=== PATIENT | female | born 1995 | race African-American/Black ===

== ENCOUNTER 2020-12-05 08:31 | Emergency (ER) | payer MEDICAID ==
--- NOTE | 2020-12-05 08:55 | ED Physician Documentation ---
PD HPI ABD PAIN - Stated complaint Stated Complaint: FEMALE - Chief complaint Chief Complaint: Abd Pain - History obtained from History obtained from: Patient - History of Present Illness Timing - onset: Yesterday Timing - duration: Days (1) Timing - details: Gradual onset, Still present Quality: Cramping, Aching, Pain Location: RLQ, Suprapubic Radiation: No: Lower back, Right flank Improved by: Position. No: Eating Worsened by: Moving, Palpation. No: Eating Associated symptoms: Vaginal dc. No: Fever, Nausea, Vomiting, Diarrhea, Constipation, Dysuria, Vaginal bleeding Similar symptoms before: No diagnosis (has had intermittent pelvic cramping over the past year since IUD placed. Prior U/S appeared okay per patient.) Recently seen: Not recently seen Review of Systems Constitutional: denies: Fever, Chills Nose: denies: Rhinorrhea / runny nose, Congestion Throat: denies: Sore throat Respiratory: denies: Cough GI: reports: Abdominal Pain. denies: Nausea, Vomiting, Diarrhea : reports: Discharge. denies: Dysuria, Frequency, Vaginal bleeding Skin: denies: Rash, Lesions PD PAST MEDICAL HISTORY - Past Medical History Past Medical History: No Cardiovascular: None Respiratory: None Neuro: Alzhiemer's Endocrine/Autoimmune: None GI: None MANAGER WOUND: None : None HEENT: None Psych: None Musculoskeletal: None Derm: None - Past Surgical History Past Surgical History: No - Present Medications Home Medications: Ambulatory Orders Medication Instructions Recorded Confirmed Fluconazole [Diflucan] 150 mg PO Q3D #2 tablet 12/05/20 HYDROcod/ACETAM 5/325 [[place] 5/325] 1 ea PO Q6H PRN #8 tablet 12/05/20 Ibuprofen [Motrin] 600 mg PO TID PRN #15 tab 12/05/20 metroNIDAZOLE [Flagyl] 500 mg PO BID #14 tablet 12/05/20 - Allergies Allergies/Adverse Reactions: Allergies Allergy/AdvReac Type Severity Reaction Status Date / Time No Known Drug Allergies Allergy Verified 12/05/20 08:46 - Social History Does the pt smoke?: No Smoking Status: Never smoker Does the pt drink ETOH?: No Does the pt have substance abuse?: No - Immunizations Immunizations are current?: Yes - POLST Patient has POLST: No PD ED PE NORMAL - Vitals Vital signs reviewed: Yes - General General: Alert and oriented X 3, Well developed/nourished, Other (appears uncomfortable, knees drawn up. Patient drove self here and prefers to be driving home.) - Neck Neck: Supple, no meningeal sign, No adenopathy - Cardiac Cardiac: RRR, No murmur - Respiratory Respiratory: Clear bilaterally - Abdomen Abdomen: Normal bowel sounds, Soft, Non distended, Other - Female Female : Assistant Credit Manager present, Other (external normal. Vaginal vault with thicker white discharge and also some mucoid thinner white as well. Mild endocervical discharge. IUD strings are visible, and IUD easily removed without bleeding after U/S to ensure not tubal/perforated/etc.) - Rectal Rectal: Deferred - Derm Derm: Normal color, Warm and dry Results - Vitals Vitals: Vital Signs - 24 hr 12/05/20 12/05/20 08:38 12:18 Temperature 36.7 C Heart Rate 84 72 Respiratory 16 16 Rate Blood Pressure 128/72 128/67 O2 Saturation 99 100 Oxygen O2 Source Room air - Labs Labs: Laboratory Tests 12/05/20 12/05/20 09:20 12:12 Urine Color YELLOW Urine Clarity CLEAR Urine pH 6.5 Ur Specific [place] 1.020 Urine Protein NEGATIVE Urine Glucose (UA) NEGATIVE Urine Ketones NEGATIVE Urine Occult Blood NEGATIVE Urine Nitrite NEGATIVE Urine Bilirubin NEGATIVE Urine Urobilinogen 0.2 (NORMAL) Ur Leukocyte Esterase NEGATIVE Ur Microscopic Review NOT INDICATED Urine Culture Comments NOT INDICATED Urine HCG, Qual NEGATIVE C. glabrata (PCR) NEGATIVE C. krusei (PCR) NEGATIVE Ivette species DNA NEGATIVE T. vaginalis (PCR) NEGATIVE Bact Vaginosis (PCR) POSITIVE A PD MEDICAL DECISION MAKING - ED course Complexity details: reviewed results (IUD is in low uterine segment/upper cervix, per Tech. one arm in the uterine wall. No perforation. No other acute process. Ovaries normal. ), re-evaluated patient (IUD was low and likely causing her pelvic cramping and she would like it out. This is reasonable since apparent vaginitis.), considered differential (she is having some vag discharge, also with pelvic cramping she has had intermittently and feels it is from IUD. ), d/w patient ED course: Some delayed time in ER as UI/S doing outpatient studies and took a bit to get to patient. Departure - Departure Disposition: 01 Home, Self Care Clinical Impression: Pelvic pain IUD migration Qualifiers: Encounter type: initial encounter Qualified Code(s): T83.32XA - Displacement of intrauterine contraceptive device, initial encounter Vaginitis Qualifiers: Chronicity: acute Qualified Code(s): N76.0 - Acute vaginitis Condition: Stable Record reviewed to determine appropriate education?: Yes Instructions: ED Vaginal Infec Fungal Ivette Follow-Up: [facility] [Provider Group] Prescriptions: Fluconazole [Diflucan] 150 mg PO Q3D #2 tablet metroNIDAZOLE [Flagyl] 500 mg PO BID #14 tablet Ibuprofen [Motrin] 600 mg PO TID PRN #15 tab PRN Reason: Pain HYDROcod/ACETAM 5/325 [[place] 5/325] 1 ea PO Q6H PRN #8 tablet PRN Reason: Pain Comments: Your IUD was in the lower uterine segment/upper cervix and location lemos could have been causing the cramping and pain. There was signs of some vaginitis on exam as well and that may have migrated up into the lower uterus as well. The IUD is removed without problems. You may notice some mild spotting or bleeding for a day or 2. Stay well-hydrated. Anti-inflammatory of ibuprofen 3 times a day with food. To that add Tylenol or hydrocodone if needed for worse pain over the next couple of days. I would anticipate improvement over the next couple of days. The vaginal specimen tests will result in a day or 2 will call if we need to modify treatment. At this point it looks like fungal yeast infection for sure and likely some bacterial vaginitis as well. Diflucan and metronidazole as directed. Recheck if not improved well over the next several days. Discharge Date/Time: 12/05/20 12:20
[2020-12-05] MEDS ORDERED: ACETAMINOPHEN 325 MG TABLET PO STA (09:06)
[2020-12-05] MEDS ORDERED: KETOROLAC 30 MG/ML VIAL IM STA (09:06)
[2020-12-05 09:29] LABS: BILIRUBIN,URINE NEGATIVE (NEGATIVE); GLUCOSE, URINE (UA) NEGATIVE (NEGATIVE); KETONES,URINE (UA) NEGATIVE (NEGATIVE); LEUKOCYTE ESTERASE, URINE NEGATIVE (NEGATIVE); NITRITE,URINE NEGATIVE (NEGATIVE); OCCULT BLOOD,URINE NEGATIVE (NEGATIVE); PH,URINE 6.5 PH (5.0-7.5); PROTEIN,URINE NEGATIVE (NEGATIVE); UROBILINOGEN,URINE 0.2 (NORMAL) E.U./dL (NORMAL)
[2020-12-05 09:30] LABS: CLARITY,URINE CLEAR (CLEAR); HCG UR QUAL NEGATIVE
--- NOTE | 2020-12-05 11:44 | Ultrasound Report ---
PROCEDURE: Pelvic w/Transvag+Doppler Comp INDICATIONS: pelvic pain, R and center; IUD in place TECHNIQUE: Real-time scanning was performed of the pelvic organs, with image documentation. Additional endovagi nal scanning was necessary due to incomplete visualization of the adnexal and endometrial structures by transabdominal scanning. COMPARISON: None. FINDINGS: No pathologic free abdominal or pelvic fluid. Uterus: Uterus is normal in size at 9.1 x 4.2 x 5.2 cm. The endometrium measures 3 mm in combined t hickness. The IUD is low lying, largely seen within the lower uterine segment. One crossbar of the I UD can be seen embedded within the anterior uterus. The second cross bar is not seen on these images. Ovaries: The right ovary measures 4.3 x 2.2 x 3.5 cm and the left ovary measures 3.2 x 1.7 x 2.2 cm. No significant ovarian abnormalities are seen, with note made of cystic follicles, which are conside red to be within physiologic limits. There are less than 12 follicles seen on each side. No adnexa l masses are seen. Normal-appearing arterial waveforms are confirmed to each ovary. IMPRESSION: Abnormal IUD, which is low lying, largely seen along the lower uterine segment. One crossbar of the L AD can be seen embedded within the anterior uterus. The second cross bar is not seen on these images. Note: Concordant preliminary findings given by the fisher oyster upon the completion of the examination to Dr. Licea at 11:20 AM on 12/05/2020. Reviewed by: Austin Espinoza MD on 12/05/2020 10:43 AM MARLYN Approved by: Austin Espinoza MD on 12/05/2020 10:43 AM MARLYN Station ID: [id number]
[2020-12-05] MEDS ORDERED: metroNIDAZOLE 250 MG TABLET PO STA (12:13)
[2020-12-05] MEDS ORDERED: FLUCONAZOLE 100 MG TABLET PO STA (12:13)
[2020-12-05 12:19] VITALS: BP 128/67
[2020-12-05 15:54] LABS: BACTERIAL VAGINOSIS DNA POSITIVE (NEGATIVE); CANDIDA GLABRATA DNA NEGATIVE (NEGATIVE); CANDIDA GROUP DNA NEGATIVE (NEGATIVE); CANDIDA KRUSEI DNA NEGATIVE (NEGATIVE); TRICHOMONAS VAGINALIS DNA NEGATIVE (NEGATIVE)
[2020-12-05 23:38] LABS: CHLAMYDIA TRACHOMATIS DNA NEGATIVE (NEGATIVE); NEISSERIA GONORRHOEAE DNA NEGATIVE (NEGATIVE); TRICHOMONAS VAGINALIS DNA NEGATIVE (NEGATIVE)
== END 2020-12-05 12:20 | disposition home or self-care (01) ==
LOC: ED 08:31
DX: T83.32XA Displacement of intrauterine contraceptive device, initial encounter (principal); Y76.8 Miscellaneous obstetric and gynecological devices associated with adverse incidents, not elsewhere classified; N76.0 Acute vaginitis; R10.2 Pelvic and perineal pain
CPT/HCPCS: 58301; 76830; 76856; 81003; 81025; 87481; 87491; 87591; 87661; 87801; 93975; 96372; 99284; A9270; 81001; 87086

== ENCOUNTER 2020-12-12 18:08 | Emergency (ER) | payer MEDICAID ==
[2020-12-12] MEDS ORDERED: HYDROmorphone 1 MG/ML CARPUJECT IVP STA (18:37)
--- NOTE | 2020-12-12 18:38 | ED Physician Documentation ---
PD HPI CHEST PAIN - Stated complaint Stated Complaint: CP/THROAT PX - Chief complaint Chief Complaint: Cardiac - History obtained from History obtained from: Patient - Additional information Additional information: A 25-year-old woman in her usual state of health was sitting on a couch about an hour and a half ago and developed substernal chest pain and neck pain radiating to the back. Pain is mostly better now but still has back pain and a headache. No light sensitivity, nausea. No possibility of . No personal or family history of concern except for cancers in the family. Review of Systems Ten Systems: 10 systems reviewed and negative Constitutional: denies: Fever, Chills Eyes: denies: Loss of vision, Decreased vision Ears: denies: Loss of hearing, Ear pain Nose: denies: Rhinorrhea / runny nose, Congestion Throat: denies: Sore throat Cardiac: reports: Chest pain / pressure. denies: Palpitations, Pedal edema, Calf pain Respiratory: denies: Hemoptysis, Wheezing PD PAST MEDICAL HISTORY - Past Medical History Past Medical History: Yes Cardiovascular: None Respiratory: None Neuro: Headaches Endocrine/Autoimmune: None GI: None SPACE STUDIES FACULTY MEMBER: None : None HEENT: None Psych: None Musculoskeletal: None Derm: None - Past Surgical History Past Surgical History: No Ortho: Other - Present Medications Home Medications: Ambulatory Orders Medication Instructions Recorded Confirmed Fluconazole [Diflucan] 150 mg PO Q3D #2 tablet 12/05/20 12/12/20 metroNIDAZOLE [Flagyl] 500 mg PO BID #14 tablet 12/05/20 12/12/20 - Allergies Allergies/Adverse Reactions: Allergies Allergy/AdvReac Type Severity Reaction Status Date / Time No Known Drug Allergies Allergy Verified 12/12/20 18:16 - Social History Does the pt smoke?: No Smoking Status: Never smoker Does the pt drink ETOH?: No Does the pt have substance abuse?: Yes Substance Use and Type: Marijuana - Immunizations Immunizations are current?: Yes - POLST Patient has POLST: No PD ED PE NORMAL - Vitals Vital signs reviewed: Yes - General General: Alert and oriented X 3, No acute distress - HEENT HEENT: PERRL, EOMI - Neck Neck: Supple, no meningeal sign, No bony TTP - Cardiac Cardiac: RRR, No murmur, Strong equal pulses (radial) - Respiratory Respiratory: No respiratory distress, Clear bilaterally - Abdomen Abdomen: Non tender - Back Back: No spinal TTP, Other (She is comfortable at wet rest but winces with motion and position changes. She has reproducible tenderness of the parathoracic musculature of the back.) - Extremities Extremities: No edema, No calf tenderness / cord Results - Vitals Vitals: Vital Signs - 24 hr 12/12/20 12/12/20 12/12/20 18:11 18:24 20:16 Temperature 37.0 C Heart Rate 74 88 73 Respiratory 24 14 15 Rate Blood Pressure 133/83 H 166/71 H 109/68 O2 Saturation 99 99 96 Oxygen O2 Source Room air - EKG (time done) 1815 Rate: Rate (enter#) (72) Rhythm: NSR [place]: Normal Intervals: Normal [place] QRS: Normal Ischemia: Normal ST segments - Labs Labs: Laboratory Tests 12/12/20 12/12/20 12/12/20 18:46 18:46 18:46 WBC 7.4 RBC 4.27 Hgb 12.8 Hct 37.8 MCV 88.5 MCH 30.0 MCHC 33.9 RDW 12.9 Plt Count 240 MPV 10.6 Neut # (Auto) 4.3 Lymph # (Auto) 2.7 [place] # (Auto) 0.3 Eos # (Auto) 0.1 Baso # (Auto) 0.0 Absolute Nucleated RBC 0.00 Nucleated RBC % 0.0 Sodium 140 Potassium 3.6 Chloride 105 Carbon Dioxide 24 Anion Gap 11.0 BUN 10 Creatinine 0.7 Estimated GFR (MDRD) 125 Glucose 128 H Calcium 9.4 Total Bilirubin 1.1 H AST 18 ALT 18 Alkaline Phosphatase 45 Troponin I High Sens < 2.3 L Total Protein 7.4 Albumin 4.6 Globulin 2.8 Albumin/Globulin Ratio 1.6 Lipase 24 - Rads (name of study) 2 view chest x-ray Radiology: EMP read contemporaneously (Normal) CT of the head Radiology: EMP read contemporaneously (Normal) PD MEDICAL DECISION MAKING - ED course ED course: 25-year-old woman presents initially with chest and back pain then morphing into a headache. States she has had similar episodes of chest and back pain in the past without clear diagnosis. Chest pain and back pain were better after IV Dilaudid. No clinical evidence of dissection. Chest x-ray EKG and troponin were without evidence of significant abnormality. Then her headache became more significant, and this was treated with Reglan with eventual relief. Departure - Departure Disposition: 01 Home, Self Care Clinical Impression: Atypical chest pain Headache Qualifiers: Headache type: unspecified Headache chronicity pattern: acute headache Intractability: not intractable Qualified Code(s): R51.9 - Headache, unspecified Condition: Good Record reviewed to determine appropriate education?: Yes Instructions: ED Chest Pain Atypical Unkn Cause, ED Headache Migraine Comments: No evidence of serious issue tonight, CT of your head, labs, chest x-ray all within normal limits. Return for new or worsening symptoms. Follow-up with your primary care physician, next available appointment. Do not drive tonight.
[2020-12-12 18:51] LABS: BASOPHILS % (AUTO) 0.4 %; EOSINOPHILS # (AUTO) 0.1 10^3/uL (0.0-0.7); EOSINOPHILS % (AUTO) 0.9 %; HCT - HEMATOCRIT 37.8 % (37.0-47.0); HGB - HEMOGLOBIN 12.8 g/dL (12.0-16.0); LYMPHOCYTES # (AUTO) 2.7 10^3/uL (1.5-3.5); MEAN CORPUSCULAR HGB CONC 33.9 g/dL (32.0-36.0); MEAN CORPUSCULAR VOLUME 88.5 fL (81.0-99.0); MEAN PLATELET VOLUME 10.6 fL (7.9-10.8); MONOCYTES # (AUTO) 0.3 10^3/uL (0.0-1.0); MONOCYTES % (AUTO) 4.6 %; NEUTROPHILS # (AUTO) 4.3 10^3/uL (1.5-6.6); NEUTROPHILS % (AUTO) 57.8 %; PLT - PLATELET COUNT 240 10^3/uL (130-450); RED BLOOD COUNT 4.27 10^6/uL (4.20-5.40); RED CELL DISTRIBUTION WIDTH 12.9 % (12.0-15.0); WHITE BLOOD COUNT 7.4 x10^3/uL (4.8-10.8)
[2020-12-12 19:13] LABS: ALBUMIN 4.6 g/dL (3.2-5.5); ALBUMIN/GLOBULIN RATIO 1.6 (1.0-2.2); BILIRUBIN,TOTAL 1.1 mg/dL (0.2-1.0); CALCIUM 9.4 mg/dL (8.5-10.3); CREATININE 0.7 mg/dL (0.4-1.0); POTASSIUM 3.6 mmol/L (3.5-5.0); TOTAL PROTEIN 7.4 g/dL (6.7-8.2)
--- NOTE | 2020-12-12 19:17 | XRAY Report ---
PROCEDURE: Chest 2 View X-Ray INDICATIONS: chest pain TECHNIQUE: 2 view(s) of the chest. COMPARISON: None. FINDINGS: Surgical changes and devices: None. Lungs and pleura: No pleural effusions or pneumothorax. Lungs are clear. Mediastinum: Mediastinal contours are normal. Heart size is normal. Bones and chest wall: No suspicious bony abnormalities. Soft tissues appear unremarkable. IMPRESSION: No evidence of acute pulmonary process. Reviewed by: Fili Negrete MD on 12/12/2020 7:15 PM PDT Approved by: Fili Negrete MD on 12/12/2020 7:15 PM PDT Station ID: [id number]
[2020-12-12] MEDS ORDERED: METOCLOPRAMIDE 10 MG/2 ML VIAL IVP STA (19:28)
--- NOTE | 2020-12-12 20:11 | CT Report ---
PROCEDURE: HEAD WO INDICATIONS: headache TECHNIQUE: Noncontrast 4.5 mm thick angled axial sections acquired from the foramen magnum to the vertex. For r adiation dose reduction, the following was used: automated exposure control, adjustment of mA and/or kV according to patient size. COMPARISON: None. FINDINGS: Image quality: Excellent. CSF spaces: Basal cisterns are patent. No extra-axial fluid collections. Ventricles are normal in size and shape. Brain: No midline shift. No intracranial masses or hemorrhage. Inman-white matter interface is norm al. Skull and face: Calvarium and visualized facial bones are intact, without suspicious lesions. Sinuses: Visualized sinuses and mastoids are clear. IMPRESSION: No evidence acute stroke, hemorrhage, or mass. Reviewed by: Fili Negrete MD on 12/12/2020 8:09 PM PDT Approved by: Fili Negrete MD on 12/12/2020 8:09 PM PDT Station ID: [id number]
[2020-12-12 21:04] VITALS: BP 110/74
== END 2020-12-12 21:13 | disposition home or self-care (01) ==
LOC: ED 18:08
DX: R07.9 Chest pain, unspecified (principal); R51.9 Headache, unspecified
CPT/HCPCS: 36415; 70450; 71046; 80053; 83690; 84484; 85025; 93005; 96374; 96375; 99284; J1170; J2765

== ENCOUNTER 2022-03-31 13:50 | Outpatient (CLI) | payer MEDICAID ==
--- NOTE | 2022-03-31 16:57 | Ultrasound Report ---
PROCEDURE: OB First Trimester w/TV INDICATIONS: POSITIVE TEST OUTSIDE/PRIOR DATING DATA: Last menstrual period (LMP): 02/02/2022. LMP-based estimated date of delivery (RUBÉN): 11/09/2022. First dating scan (date and location): 03/31/2022. Estimated date of delivery (RUBÉN) from first dating scan: 11/14/2022. TECHNIQUE: Real-time scanning was performed of the fetus and maternal pelvic organs, with image documentation. Endovaginal scanning was also performed to better visualize the fetus and maternal ovaries. COMPARISON: None FINDINGS: There is a single living intrauterine gestation with a heart rate of 144 bpm. Sheldon-rump length is 13 mm corresponding to a 7 week 4 day gestation. A yolk sac is present. There is a small para ges tational hemorrhage measuring 8 mm. Measurement variability in dating: +/- 4 weeks by LMP, +/- 7 day s by mean sac diameter (use before 6 weeks gestation if crown-rump length not able to be measured), + /- 5 days by crown-rump length (6-12 weeks gestation). Maternal organs: Ovaries within normal limits. IMPRESSION: Single living early intrauterine gestation. Reviewed by: Yosef Laguna MD on 03/31/2022 4:55 PM PDT Approved by: Yosef Laguna MD on 03/31/2022 4:55 PM PDT Station ID: [id number]
== END 2022-03-31 13:51 | disposition home or self-care (01) ==
LOC: DI 13:50
PROVIDERS: ATTEND Nurse Practitioner
DX: Z32.01 Encounter for pregnancy test, result positive (principal)

== ENCOUNTER 2022-04-14 08:00 | Outpatient (CLI) | payer MEDICAID ==
[2022-04-14 23:05] LABS: CHLAMYDIA TRACHOMATIS DNA NEGATIVE (NEGATIVE); NEISSERIA GONORRHOEAE DNA NEGATIVE (NEGATIVE); TRICHOMONAS VAGINALIS DNA NEGATIVE (NEGATIVE)
== END 2022-04-14 23:59 | disposition home or self-care (01) ==
LOC: LAB.WC 08:00
PROVIDERS: ATTEND Obstetrics & Gynecology
DX: Z11.3 Encounter for screening for infections with a predominantly sexual mode of transmission (principal)
CPT/HCPCS: 87491; 87591; 87661

== ENCOUNTER 2022-05-30 11:04 | Outpatient (CLI) | payer MEDICAID ==
[2022-06-02 13:09] LABS: AFP MOM 0.64 (.); AFP VALUE 23.9 ng/mL (.); DIA MOM 0.87 (.); DIA VALUE 121.02 pg/mL (.); DSR (BY AGE) 1 IN 943 (.); DSR (SECOND TRIMESTER) 1 IN 1405 (.); GEST. AGE ON COLLECTION DATE 16.7 WEEKS (.); HCG MOM 1.79 (.); HCG VALUE 59149 mIU/mL (.); INSULIN DEP DIABETES No (.); MATERNAL AGE AT EDD 26.7 yr (.); MULTIPLE GESTATION No (.); OPEN SPINA BIFIDA RISK 1 IN 10000 (.); RACE Black (.); RESULTS Report (.); TEST RESULTS *Screen Negative* (.); TRISOMY 18 RISK Not increased (.); UE3 VALUE 0.85 ng/mL (.); WEIGHT 184 lbs (.)
== END 2022-05-30 11:05 | disposition home or self-care (01) ==
LOC: LAB.N 11:04
PROVIDERS: ATTEND Obstetrics & Gynecology
DX: O99.019 Anemia complicating pregnancy, unspecified trimester (principal); O34.211 Maternal care for low transverse scar from previous cesarean delivery
CPT/HCPCS: 36415; 81511; 82728; 83540

== ENCOUNTER 2022-06-30 20:04 | Outpatient (CLI) | payer MEDICAID ==
--- NOTE | 2022-07-01 09:08 | Ultrasound Report ---
PROCEDURE: OB F/U or Repeat INDICATIONS: SUPERVISION OF OUTSIDE/PRIOR DATING DATA: Last menstrual period (LMP): 02/02/2022. LMP-based estimated date of delivery (RUBÉN): 11/09/2022. First dating scan (date and location): 03/31/2022. Estimated date of delivery (RUBÉN) from first dating scan: 11/14/2022. The below data below was generated using the ultrasound RUBÉN of 11/14/2022. TECHNIQUE: Real-time scanning was performed of the fetus, with image documentation. COMPARISON: OB ultrasound 06/22/2022. FINDINGS: General: A single living intrauterine gestation is present. Presentation: Vertex Placenta: Placental position is posterior, without previa. Amniotic fluid index: 16 cm, normal for gestational age. Largest pocket 5 cm. heart rate: 138 beats per minute. Maternal cervical canal: Cervix is closed. Estimated gestational age from initial scan: 20 weeks 3 days Other: Cardiac outflow tracts are now visualized and are within normal limits. IMPRESSION: 1. [place] living intrauterine at 20 weeks 3 days based on prior ultrasound. 2. Normal placenta and amniotic fluid. 3. Cardiac outflow tracts are normal. This completes the anatomic survey Reviewed by: Jordy Shearer MD on 07/01/2022 9:06 AM PST Approved by: Jordy Shearer MD on 07/01/2022 9:06 AM PST Station ID: [id number]
== END 2022-06-30 20:05 | disposition home or self-care (01) ==
LOC: DI 20:04
PROVIDERS: ATTEND Obstetrics & Gynecology
DX: Z34.02 Encounter for supervision of normal first pregnancy, second trimester (principal)

== ENCOUNTER 2022-09-19 10:30 | Outpatient (CLI) | payer MEDICAID | END 2022-09-19 10:45 | disposition home or self-care (01) | LOC: LAB.N 10:30 | PROVIDERS: ATTEND Registered Nurse | DX: L03.90 Cellulitis, unspecified (principal); N89.8 Other specified noninflammatory disorders of vagina | CPT/HCPCS: 87070; 87181; 87252 ==

== ENCOUNTER 2023-09-17 09:21 | Outpatient (CLI) | payer MEDICAID ==
--- NOTE | 2023-09-17 20:33 | Ultrasound Report ---
PROCEDURE: Pelvic w/Transvaginal INDICATIONS: PELVIC PAIN TECHNIQUE: Real-time scanning was performed of the pelvic organs, with image documentation. Additional endovagi nal scanning was necessary due to incomplete visualization of the adnexal and endometrial structures by transabdominal scanning. COMPARISON: OB ultrasound on December 05, 2020. FINDINGS: Uterus: Uterus is retroverted and retroflexed and normal in size at 6.7 x 4.7 x 4.6 cm. The myometr ium is heterogeneous. The endometrium measures 9 mm in combined thickness. Cervix and vagina are wi thin normal limits. Ovaries: The right ovary measures 3.3 x 2.7 x 2 cm, with a calculated ovarian volume of 10 cc. The left ovary measures 1.5 x 1.6 x 3.3 cm, with a calculated ovarian volume of 8.9 cc. The ovaries have a normal sonographic appearance. There are multiple follicles in the bilateral ovaries which are co nsidered to be within physiologic limits (at the upper limits of normal) and appears similar to prior pelvic ultrasound dated December 05, 2020. Less than 12 follicles can be seen in each ovary. No adnexal masses are seen. No cystic lesions measuring greater than 3 cm. Other: No pathologic free abdominal or pelvic fluid. Multiple prominent vessels in the bilateral adn exa. IMPRESSION: 1.Uterus appears normal with an endometrial thickness of 9 mm. 2.There are multiple follicles in the bilateral ovaries which are considered to be within physiologic limits (at the upper limits of normal) and appears similar to prior pelvic ultrasound dated December 05, 2020. PCOS could be considered, in the appropriate clinical context. 3.Multiple prominent vessels in the bilateral adnexa which are nonspecific and can be seen in the set ting of pelvic congestion syndrome. Reviewed by: Ladonna Byers MD on 09/17/2023 8:32 PM PDT Approved by: Ladonna Byers MD on 09/17/2023 8:32 PM PDT Station ID: [id number]
== END 2023-09-17 09:22 | disposition home or self-care (01) ==
LOC: DI 09:21
PROVIDERS: ATTEND Nurse Practitioner Family
DX: R10.2 Pelvic and perineal pain (principal)